=== PATIENT | female | born 1955 | race Two or more races ===

== ENCOUNTER 2021-10-14 15:05 | Inpatient (IN) | payer OTHER ==
[~2021-10-14] VITALS: Ht 154.9 cm; Wt 76.2 kg
[2021-10-14] MEDS ORDERED: dilTIAZem 25 MG/5 ML VIAL IV ONE ×2 (16:11→16:15)
[2021-10-14] MEDS ORDERED: SODIUM CHLORIDE 0.9% 1,000 ML IV ONE (16:15)
[2021-10-14] MEDS ORDERED: ASPirin 81 mg TAB PO ONE (16:15)
[2021-10-14] MEDS ORDERED: SODIUM CHLORIDE 0.9% 1,000 ML IVB ONE (16:15)
[2021-10-14] MEDS ORDERED: SODIUM CHLORIDE 0.9% 500 ML IV ONE (16:15)
[2021-10-14 16:16] LABS: Albumin 3.1 g/dL (3.4-5.0); BUN/Creatinine Ratio 15.8; Calcium 8.2 mg/dL (8.5-10.1); Potassium 3.7 mmol/L (3.5-5.1)
[2021-10-14 16:21] LABS: Bilirubin, Total 0.8 mg/dL (0.2-1.0); Total Protein 7.4 g/dL (6.4-8.2)
[2021-10-14 16:22] LABS: Basophils # (auto) 0.1 10 ^3/uL (0-0.2); Basophils % (auto) 1.2 % (0.0-2.0); Eosinophils # (auto) 0.1 10 ^3/uL (0-0.8); Eosinophils % (auto) 1.7 % (0.0-7.0); Hematocrit 36.5 % (36.0-46.0); Hemoglobin 12.2 g/dL (12.2-16.2); Lymphocytes # (auto) 0.9 10 ^3/uL (0.4-5.4); Lymphocytes % (auto) 18.8 % (10.0-50.0); Mean Corpuscular Hemoglobin 30.4 pg (28.0-32.0); Mean Corpuscular Hgb Conc. 33.3 g/dL (32.0-36.0); Mean Corpuscular Volume 91.1 fL (80.0-100.0); Monocytes # (auto) 0.3 10 ^3/uL (0-1.3); Monocytes % (auto) 6.1 % (0.0-12.0); Neutrophils # (auto) 3.4 10 ^3/uL (1.6-8.6); Neutrophils % (auto) 72.2 % (37.0-80.0); Nucleated Red Blood Cells % 0.1 %; Red Cell Distribution Width 14.1 % (11.8-14.3); White Blood Cell 4.7 10^3/uL (4.4-10.8)
[2021-10-14] MEDS ORDERED: cefTRIAXone 1GM/50ML D5W 50 ML IV ONE (18:15)
[2021-10-14] MEDS ORDERED: FUROSEMIDE 20 MG/2 ML VIAL IV ONE (18:15)
[2021-10-14] MEDS ORDERED: MORPHINE SULFATE INJECTION 2 MG/ML SYRG IV PRN (18:30)
[2021-10-14 18:42] LABS: Urine Bacteria FEW /hpf (None Seen); Urine Blood Negative /uL (Negative); Urine Mucus FEW (None Seen); Urine Specific Gravity 1.022 (1.001-1.035); Urine WBC 5 /hpf (0 - 5)
[2021-10-14] MEDS ORDERED: ENOXAPARIN SOD 40 MG/0.4 ML SYRINGE SC ONE (18:45)
[2021-10-14] MEDS ORDERED: dilTIAZem 25 MG/5 ML VIAL IV PRN (19:00)
[2021-10-14 21:36] VITALS: BP 122/69
[2021-10-14 22:00] VITALS: BP 122/69
[2021-10-14] MEDS: METOPROLOL TARTRATE 25 MG TAB PO SCH (22:18)
[2021-10-15 05:00] VITALS: BP 122/99
[2021-10-15 06:01] LABS: Basophils # (auto) 0 10 ^3/uL (0-0.2); Basophils % (auto) 0.4 % (0.0-2.0); Eosinophils # (auto) 0.1 10 ^3/uL (0-0.8); Eosinophils % (auto) 2.2 % (0.0-7.0); Hematocrit 35.6 % (36.0-46.0); Hemoglobin 11.8 g/dL (12.2-16.2); Lymphocytes # (auto) 1.1 10 ^3/uL (0.4-5.4); Lymphocytes % (auto) 24.2 % (10.0-50.0); Mean Corpuscular Hemoglobin 30.5 pg (28.0-32.0); Mean Corpuscular Hgb Conc. 33.2 g/dL (32.0-36.0); Mean Corpuscular Volume 91.9 fL (80.0-100.0); Monocytes # (auto) 0.3 10 ^3/uL (0-1.3); Neutrophils # (auto) 3.1 10 ^3/uL (1.6-8.6); Neutrophils % (auto) 67.2 % (37.0-80.0); Nucleated Red Blood Cells % 0.1 %; Red Blood Cells 3.88 10^6/uL (4.0-5.20); Red Cell Distribution Width 14.1 % (11.8-14.3); White Blood Cell 4.7 10^3/uL (4.4-10.8)
[2021-10-15 06:21] LABS: Calcium 8.1 mg/dL (8.5-10.1); Potassium 3.8 mmol/L (3.5-5.1)
[2021-10-15 09:00] VITALS: BP 131/88
[2021-10-15] MEDS: METOPROLOL TARTRATE 25 MG TAB PO SCH ×2 (09:49→21:52)
[2021-10-15 13:00] VITALS: BP 121/91
[2021-10-15] MEDS ORDERED: AMIODARONE 450mg/250ml AE 250 ML IV SCH (16:00)
[2021-10-15] MEDS ORDERED: AMIODARONE HCL 150 MG in D5W 5% 100 ML IV ONE (16:00)
[2021-10-15] MEDS: FUROSEMIDE 40 MG/4 ML VIAL IV SCH (16:12)
[2021-10-15 16:53] VITALS: BP 142/90
[2021-10-15] MEDS: AMIODARONE 450mg/250ml AE 250 ML IV SCH (21:51)
[2021-10-15 22:00] VITALS: BP 122/81
[2021-10-16 05:00] VITALS: BP 126/77
[2021-10-16 05:56] LABS: Basophils # (auto) 0 10 ^3/uL (0-0.2); Basophils % (auto) 0.6 % (0.0-2.0); Eosinophils # (auto) 0.1 10 ^3/uL (0-0.8); Eosinophils % (auto) 2.4 % (0.0-7.0); Hematocrit 36.4 % (36.0-46.0); Lymphocytes % (auto) 19.1 % (10.0-50.0); Mean Corpuscular Hemoglobin 30.1 pg (28.0-32.0); Mean Corpuscular Hgb Conc. 33.1 g/dL (32.0-36.0); Monocytes # (auto) 0.5 10 ^3/uL (0-1.3); Neutrophils # (auto) 3.6 10 ^3/uL (1.6-8.6); Neutrophils % (auto) 68.9 % (37.0-80.0); Nucleated Red Blood Cells % 0.1 %; Red Cell Distribution Width 14.1 % (11.8-14.3); White Blood Cell 5.3 10^3/uL (4.4-10.8)
[2021-10-16 06:20] LABS: Potassium 3.4 mmol/L (3.5-5.1)
[2021-10-16 06:35] LABS: BUN/Creatinine Ratio 24.3; Calcium 8.7 mg/dL (8.5-10.1)
[2021-10-16] MEDS: METOPROLOL TARTRATE 25 MG TAB PO SCH ×2 (08:27→21:26)
[2021-10-16] MEDS: FUROSEMIDE 40 MG/4 ML VIAL IV SCH (08:27)
[2021-10-16] MEDS: PANTOPRAZOLE 40 MG TAB PO SCH (08:28)
[2021-10-16 09:00] VITALS: BP 140/97
[2021-10-16 13:00] VITALS: BP 120/81
[2021-10-16] MEDS: AMIODARONE 450mg/250ml AE 250 ML IV SCH (13:00)
[2021-10-16 17:00] VITALS: BP 142/97
[2021-10-16] MEDS: APIXABAN 5 MG TAB PO SCH (21:26)
[2021-10-16 22:00] VITALS: BP 135/86
[2021-10-17 05:00] VITALS: BP 129/85
[2021-10-17] MEDS: AMIODARONE 450mg/250ml AE 250 ML IV SCH ×2 (05:30→17:48)
[2021-10-17] MEDS: PANTOPRAZOLE 40 MG TAB PO SCH (08:35)
[2021-10-17] MEDS: FUROSEMIDE 40 MG/4 ML VIAL IV SCH (08:35)
[2021-10-17] MEDS: APIXABAN 5 MG TAB PO SCH ×2 (08:35→22:16)
[2021-10-17] MEDS: METOPROLOL TARTRATE 25 MG TAB PO SCH (08:35)
[2021-10-17 09:00] VITALS: BP 123/80
[2021-10-17 12:53] VITALS: BP 113/69
[2021-10-17] MEDS: ALUM & MAG HYDROX-SIMETH LIQ(MAALOX) 30 ML PO PRN ×2 (15:48→19:41)
[2021-10-17 17:00] VITALS: BP 135/74
[2021-10-17] MEDS: METOPROLOL TARTRATE 50 MG TAB PO SCH (22:16)
[2021-10-17 22:33] VITALS: BP 134/72
[2021-10-18 05:20] VITALS: BP 117/72
[2021-10-18 08:36] VITALS: BP 120/90
[2021-10-18] MEDS: PANTOPRAZOLE 40 MG TAB PO SCH (09:59)
[2021-10-18] MEDS: NITROGLYCERIN 0.4 MG SL TAB SL PRN ×3 (09:59→10:10)
[2021-10-18] MEDS: APIXABAN 5 MG TAB PO SCH (09:59)
[2021-10-18] MEDS: METOPROLOL TARTRATE 50 MG TAB PO SCH ×2 (09:59→21:49)
[2021-10-18] MEDS: FUROSEMIDE 40 MG/4 ML VIAL IV SCH (10:00)
[2021-10-18] MEDS: AMIODARONE 450mg/250ml AE 250 ML IV SCH (10:00)
[2021-10-18] MEDS ORDERED: NITROGLYCERIN 0.4 MG SL TAB SL PRN (11:00)
[2021-10-18] MEDS: AMIODARONE HCL 200 MG TAB PO SCH ×2 (13:35→21:48)
[2021-10-18 14:31] VITALS: BP 105/75
[2021-10-18 17:18] VITALS: BP 129/65
[2021-10-18 21:50] VITALS: BP 100/80
[2021-10-18] MEDS ORDERED: ENOXAPARIN SOD 100 MG/1 ML SYRINGE SC SCH ×2 (22:00)
[2021-10-18] MEDS ORDERED: ATORVASTATIN 20 MG TAB PO SCH (22:00)
[2021-10-19 04:47] VITALS: BP 103/59
[2021-10-19 08:00] VITALS: BP 109/78
[2021-10-19 09:00] VITALS: BP 109/78
[2021-10-19] MEDS: PANTOPRAZOLE 40 MG TAB PO SCH (09:09)
[2021-10-19] MEDS: METOPROLOL TARTRATE 50 MG TAB PO SCH (09:10)
[2021-10-19] MEDS: FUROSEMIDE 40 MG/4 ML VIAL IV SCH (09:11)
[2021-10-19] MEDS: AMIODARONE HCL 200 MG TAB PO SCH (09:11)
[2021-10-19] MEDS ORDERED: ASPirin 81 mg TAB PO SCH (10:00)
[2021-10-19] MEDS ORDERED: IODIXANOL 320MG/ML 100ML BTL IV ONE (10:55)
[2021-10-19] MEDS ORDERED: HEPARIN SODIUM (PORCINE) 5000 UNITS/ML 1ML VIAL ONE (11:22)
[2021-10-19] MEDS ORDERED: ANGIOMAX 250 MG VIAL IV ONE (11:22)
[2021-10-19] MEDS ORDERED: VERAPAMIL 2.5MG/ML INJ 2ML VIAL IV ONE (11:22)
[2021-10-19] MEDS ORDERED: SODIUM CHL 0.9% 0 ML ONE (11:23)
[2021-10-19] MEDS ORDERED: MIDAZOLAM HCL 2MG/2ML 2ml VIAL (1mg/ml) ONE (11:23)
[2021-10-19] MEDS ORDERED: fentaNYL CITRATE 100 MCG/2 ML VL ONE (11:23)
[2021-10-19 11:35] LABS: INR 1.42 (0.9-1.15); Partial Thromboplastin Time 31.9 sec (23.6-33.0)
[2021-10-19] MEDS ORDERED: FURO1TAB33 PO (16:46)
[2021-10-19] MEDS ORDERED: MET50T PO (16:46)
[2021-10-19] MEDS ORDERED: AMIO200T4 GT (16:46)
[2021-10-19] MEDS ORDERED: POTA1TAB4 PO (16:46)
[2021-10-19] MEDS ORDERED: APIX5TAB OR (16:46)
[2021-10-19 17:00] VITALS: BP 94/64
[2021-10-19 17:23] VITALS: BP 102/65
== END 2021-10-19 19:05 | disposition home health service (06) | DRG 280 ==
LOC: ER 15:05 → TELE 18:28 → TELE-WESTW 21:09 → OBSVTOIN 10-15 15:58
PROVIDERS: ADMIT Internal Medicine; ATTEND Internal Medicine
PROC: B2111ZZ Fluoroscopy of Multiple Coronary Arteries using Low Osmolar Contrast (ICD-10-PCS; principal; 2021-10-19)
DX: I48.0 Paroxysmal atrial fibrillation (principal); I50.21 Acute systolic (congestive) heart failure; I21.A1 Myocardial infarction type 2; E44.1 Mild protein-calorie malnutrition; I42.9 Cardiomyopathy, unspecified; I11.0 Hypertensive heart disease with heart failure; Z20.822 Contact with and (suspected) exposure to COVID-19; E66.9 Obesity, unspecified; R73.9 Hyperglycemia, unspecified
CPT/HCPCS: 36415; 71045; 80048; 80053; 81001; 83036; 83735; 84443; 84484; 85025; 85379; 85610; 85730; 87040; 93005; 93306; 93458; 96361; 96365; 96372; 96375; 96376; 99152; G0378; J0696; J2250; J7060; Q9967

== ENCOUNTER 2022-04-27 11:20 | Emergency (ER) | payer OTHER ==
[~2022-04-27] VITALS: Ht 152.4 cm; Wt 77.2 kg
[~2022-04-27 11:20] MED LIST: AMIO200T4 GT; APIX5TAB OR; FURO1TAB33 PO; MET50T PO; POTA1TAB4 PO
[2022-04-27 11:35] VITALS: BP 136/78
[2022-04-27 12:26] LABS: Basophils # (auto) 0 10 ^3/uL (0-0.2); Basophils % (auto) 0.4 % (0.0-2.0); Eosinophils # (auto) 0.1 10 ^3/uL (0-0.8); Eosinophils % (auto) 1.5 % (0.0-7.0); Hemoglobin 12.1 g/dL (12.2-16.2); Lymphocytes # (auto) 0.6 10 ^3/uL (0.4-5.4); Lymphocytes % (auto) 11.9 % (10.0-50.0); Mean Corpuscular Hgb Conc. 32.6 g/dL (32.0-36.0); Monocytes # (auto) 0.3 10 ^3/uL (0-1.3); Monocytes % (auto) 6.6 % (0.0-12.0); Neutrophils % (auto) 79.6 % (37.0-80.0); Nucleated Red Blood Cells % 0.1 %; Red Blood Cells 4.03 10^6/uL (4.0-5.20); Red Cell Distribution Width 16.8 % (11.8-14.3); White Blood Cell 5.1 10^3/uL (4.4-10.8)
[2022-04-27 12:50] LABS: Albumin 3.1 g/dL (3.4-5.0)
[2022-04-27 12:54] LABS: Bilirubin, Total 2.2 mg/dL (0.2-1.0)
[2022-04-27 13:30] LABS: BUN/Creatinine Ratio 20.9
[2022-04-27] MEDS ORDERED: FUROSEMIDE 20 MG TAB PO ONE (15:15)
== END 2022-04-27 15:14 | disposition home or self-care (01) ==
LOC: ER 11:20
DX: I11.0 Hypertensive heart disease with heart failure (principal); I50.9 Heart failure, unspecified; Z79.899 Other long term (current) drug therapy
CPT/HCPCS: 36415; 71045; 80053; 83880; 84484; 85025; 93005

== ENCOUNTER 2022-08-05 15:59 | Observation (INO) | payer OTHER ==
[~2022-08-05] VITALS: Ht 154.9 cm; Wt 82.0 kg
[2022-08-05] MEDS ORDERED: FUROSEMIDE 40 MG/4 ML VIAL IV ONE (16:15)
[2022-08-05 16:50] LABS: Basophils # (auto) 0 10 ^3/uL (0-0.2); Basophils % (auto) 0.7 % (0.0-2.0); Eosinophils # (auto) 0 10 ^3/uL (0-0.8); Eosinophils % (auto) 0.8 % (0.0-7.0); Hematocrit 35.9 % (36.0-46.0); Hemoglobin 11.9 g/dL (12.2-16.2); Lymphocytes # (auto) 0.5 10 ^3/uL (0.4-5.4); Lymphocytes % (auto) 9.7 % (10.0-50.0); Mean Corpuscular Hemoglobin 29.6 pg (28.0-32.0); Mean Corpuscular Hgb Conc. 33.1 g/dL (32.0-36.0); Mean Corpuscular Volume 89.6 fL (80.0-100.0); Monocytes # (auto) 0.3 10 ^3/uL (0-1.3); Monocytes % (auto) 6.5 % (0.0-12.0); Neutrophils # (auto) 4.1 10 ^3/uL (1.6-8.6); Neutrophils % (auto) 82.3 % (37.0-80.0); Nucleated Red Blood Cells % 0.1 %
[2022-08-05 16:51] LABS: Red Cell Distribution Width 24.4 % (11.8-14.3)
[2022-08-05 17:11] LABS: Albumin 2.7 g/dL (3.4-5.0); Calcium 8.1 mg/dL (8.5-10.1); Magnesium 1.9 mg/dL (1.6-2.6); Potassium 4.2 mmol/L (3.5-5.1)
[2022-08-05 17:14] LABS: BUN/Creatinine Ratio 12.3; Total Protein 8.2 g/dL (6.4-8.2)
[2022-08-05] MEDS ORDERED: IOHEXOL 350 MG/ML 100ML IJ ONE (18:11)
[2022-08-05] MEDS ORDERED: MORPHINE SULFATE INJ 2 MG/ml SYRG IV PRN ×2 (20:15→23:30)
[2022-08-05] MEDS ORDERED: NITROGLYCERIN 0.4 MG SL TAB SL PRN ×2 (20:15→23:30)
[2022-08-05] MEDS: levoFLOXacin 500MG 100 ML IV SCH (21:29)
[2022-08-05 22:36] LABS: INR 1.64 (0.9-1.15)
[2022-08-05 22:54] LABS: Urine Bacteria NONE SEEN /hpf (None Seen); Urine Blood Negative /uL (Negative); Urine Mucus FEW (None Seen); Urine WBC 1 /hpf (0 - 5)
[2022-08-05 22:58] LABS: Urine Specific Gravity > 1.050 (1.001-1.035)
[2022-08-05] MEDS: methylPREDNISolone SOD SUCC 125 MG/2 ML VL IV SCH (23:01)
[2022-08-05] MEDS: FUROSEMIDE 40 MG/4 ML VIAL IV SCH (23:02)
[2022-08-06 04:32] LABS: Basophils # (auto) 0 10 ^3/uL (0-0.2); Basophils % (auto) 0.1 % (0.0-2.0); Eosinophils # (auto) 0 10 ^3/uL (0-0.8); Eosinophils % (auto) 0.1 % (0.0-7.0); Hematocrit 36.8 % (36.0-46.0); Hemoglobin 11.8 g/dL (12.2-16.2); Lymphocytes # (auto) 0.2 10 ^3/uL (0.4-5.4); Lymphocytes % (auto) 3.5 % (10.0-50.0); Mean Corpuscular Hgb Conc. 32.1 g/dL (32.0-36.0); Mean Corpuscular Volume 90.2 fL (80.0-100.0); Monocytes # (auto) 0.1 10 ^3/uL (0-1.3); Monocytes % (auto) 1.4 % (0.0-12.0); Neutrophils # (auto) 6.2 10 ^3/uL (1.6-8.6); Neutrophils % (auto) 94.9 % (37.0-80.0); Nucleated Red Blood Cells % 0.2 %; Red Blood Cells 4.08 10^6/uL (4.0-5.20); White Blood Cell 6.5 10^3/uL (4.4-10.8)
[2022-08-06 04:40] LABS: Red Cell Distribution Width 23.7 % (11.8-14.3)
[2022-08-06 04:49] LABS: Albumin 2.6 g/dL (3.4-5.0); Calcium 7.8 mg/dL (8.5-10.1); Potassium 3.7 mmol/L (3.5-5.1)
[2022-08-06 04:52] LABS: BUN/Creatinine Ratio 14.4; Bilirubin, Total 2.5 mg/dL (0.2-1.0); Total Protein 8.2 g/dL (6.4-8.2)
[2022-08-06] MEDS: methylPREDNISolone SOD SUCC 125 MG/2 ML VL IV SCH ×2 (06:02→17:43)
[2022-08-06] MEDS: FUROSEMIDE 40 MG/4 ML VIAL IV SCH ×3 (06:07→22:00)
[2022-08-06] MEDS: levoFLOXacin 500MG 100 ML IV SCH (17:36)
[2022-08-06] MEDS ORDERED: VANCOMYCIN 1GM/250ML 250 ML IV ONE (18:15)
[2022-08-06] MEDS ORDERED: VANCOMYCIN PER PHARMACY 0 MG IV SCH (19:00)
[2022-08-06] MEDS ORDERED: MEROPENEM 1GM IVPB 100 ML IV SCH (22:00)
[2022-08-07] VITALS (9 sets, daily range): BP systolic 104–123; BP diastolic 62–72
[2022-08-07] MEDS: FUROSEMIDE 40 MG/4 ML VIAL IV SCH ×3 (06:24→21:42)
[2022-08-07] MEDS: cefTRIAXone 1GM/50ML D5W 50 ML IV SCH (08:48)
[2022-08-07 09:55] LABS: Albumin 2.4 g/dL (3.4-5.0); Calcium 7.9 mg/dL (8.5-10.1); Potassium 3.4 mmol/L (3.5-5.1)
[2022-08-07 09:57] LABS: BUN/Creatinine Ratio 23.2; Phosphorus 3.5 mg/dL (2.5-4.90)
[2022-08-07] MEDS ORDERED: APIXABAN 5 MG TAB PO SCH (10:00)
[2022-08-07] MEDS ORDERED: APIX5TAB OR (12:13)
[2022-08-07] MEDS ORDERED: AMIODARONE HCL 200 MG TAB PO ONE (12:15)
[2022-08-07] MEDS ORDERED: POTASSIUM CHL 10 Meq TABLET PO ONE (12:15)
[2022-08-07] MEDS: APIXABAN 5 MG TAB PO SCH ×2 (12:54→21:39)
[2022-08-07] MEDS ORDERED: VANCOMYCIN 1GM/250ML 250 ML IV SCH (14:00)
[2022-08-07] MEDS ORDERED: POTA1TAB4 PO (14:08)
[2022-08-07] MEDS ORDERED: MET50T PO (14:08)
[2022-08-07] MEDS ORDERED: AMIO200T4 GT (14:08)
[2022-08-07] MEDS ORDERED: FURO1TAB33 PO (14:08)
[2022-08-07] MEDS ORDERED: METOPROLOL TARTRATE 25 MG TAB PO ONE (14:15)
[2022-08-08 05:00] VITALS: BP 110/68
[2022-08-08 08:00] VITALS: BP 121/82
[2022-08-08 08:57] VITALS: BP 121/82
[2022-08-08] MEDS: APIXABAN 5 MG TAB PO SCH (09:24)
[2022-08-08] MEDS: cefTRIAXone 1GM/50ML D5W 50 ML IV SCH (09:24)
[2022-08-08 13:00] VITALS: BP 100/75
[2022-08-08 13:31] VITALS: BP 100/75
== END 2022-08-08 14:53 | disposition home or self-care (01) ==
LOC: EDBD 15:59 → ER 15:59 → TELE 23:25 → TELE-WESTW 08-06 22:44
PROVIDERS: ADMIT Internal Medicine; ATTEND Internal Medicine
DX: I48.91 Unspecified atrial fibrillation (principal); Z20.822 Contact with and (suspected) exposure to COVID-19; I11.0 Hypertensive heart disease with heart failure; I50.33 Acute on chronic diastolic (congestive) heart failure; K74.60 Unspecified cirrhosis of liver; J98.11 Atelectasis; E66.9 Obesity, unspecified; R18.8 Other ascites; R78.81 Bacteremia; J90 Pleural effusion, not elsewhere classified; E66.01 Morbid (severe) obesity due to excess calories; I42.8 Other cardiomyopathies; K42.9 Umbilical hernia without obstruction or gangrene; K57.30 Diverticulosis of large intestine without perforation or abscess without bleeding; E78.00 Pure hypercholesterolemia, unspecified; R74.8 Abnormal levels of other serum enzymes; R77.8 Other specified abnormalities of plasma proteins; Z79.01 Long term (current) use of anticoagulants; Z68.34 Body mass index [BMI] 34.0-34.9, adult; Z79.899 Other long term (current) drug therapy; Z91.119 Patient's noncompliance with dietary regimen due to unspecified reason; Z98.890 Other specified postprocedural states
CPT/HCPCS: 36415; 71045; 71275; 74176; 76700; 80053; 80069; 81001; 83605; 83735; 83880; 84484; 85025; 85379; 85610; 87040; 87077; 87186; 87426; 93005; 93306; 93970; 96365; 96366; 96367; 96375; 96376; 99285; G0378; J0696; J1940; J1956; J2930; J3370; J7030; Q9967